=== PATIENT | male | born 1980 | race Hispanic/Latino ===

== ENCOUNTER 2022-03-14 14:20 | Outpatient (CLI) | payer SELFPAY | END 2022-03-14 14:21 | disposition home or self-care (01) | LOC: CSHWCC 14:20 | PROVIDERS: ATTEND Nurse Practitioner Family | DX: T81.89XD Other complications of procedures, not elsewhere classified, subsequent encounter (principal) | CPT/HCPCS: 11043; 99203; G0463 ==

== ENCOUNTER 2022-03-21 13:32 | Outpatient (CLI) | payer SELFPAY | END 2022-03-21 13:33 | disposition home or self-care (01) | LOC: CSHWCC 13:32 | PROVIDERS: ATTEND Nurse Practitioner Family | DX: T81.89XD Other complications of procedures, not elsewhere classified, subsequent encounter (principal) | CPT/HCPCS: 11043; 99212; G0463 ==

== ENCOUNTER 2022-03-28 15:09 | Outpatient (CLI) | payer SELFPAY | END 2022-03-28 15:10 | disposition home or self-care (01) | LOC: CSHWCC 15:09 | PROVIDERS: ATTEND Nurse Practitioner Family | DX: T81.89XD Other complications of procedures, not elsewhere classified, subsequent encounter (principal) | CPT/HCPCS: 11043 ==

== ENCOUNTER 2022-04-08 10:54 | Outpatient (CLI) | payer SELFPAY | END 2022-04-08 10:55 | disposition home or self-care (01) | LOC: CSHWCC 10:54 | PROVIDERS: ATTEND Nurse Practitioner Family | DX: T81.89XD Other complications of procedures, not elsewhere classified, subsequent encounter (principal) | CPT/HCPCS: 97607 ==

== ENCOUNTER 2022-04-15 08:45 | Outpatient (CLI) | payer SELFPAY | END 2022-04-15 08:46 | disposition home or self-care (01) | LOC: CSHWCC 08:45 | PROVIDERS: ATTEND Nurse Practitioner Family | DX: T81.89XD Other complications of procedures, not elsewhere classified, subsequent encounter (principal) | CPT/HCPCS: 11042; 99212; G0463 ==

== ENCOUNTER 2022-04-22 08:43 | Outpatient (CLI) | payer SELFPAY | END 2022-04-22 08:44 | disposition home or self-care (01) | LOC: CSHWCC 08:43 | PROVIDERS: ATTEND Nurse Practitioner Family | DX: T81.89XD Other complications of procedures, not elsewhere classified, subsequent encounter (principal) | CPT/HCPCS: 99213; G0463 ==